=== PATIENT | female | born 1990 | race Caucasian/White ===

== ENCOUNTER 2017-07-23 16:28 | Inpatient (IN) | payer OTHER ==
[2017-07-23 21:00] LABS: AADO2 Arterial 8.1 mmHg (7.0-24.0); Allen Test ACCEPTAB; Arterial Base Excess -2.6 mmol/L (-3.0-3); Arterial Blood Gas Oxygen Sat 97.3 mmHG (95.0-98.0); Arterial COHb 0.3 % (0.0-3.0); Arterial Fraction of Oxyhgb 96.8 % (93.0-99.0); Arterial HCO3 21.5 mmol/L (22.0-26.0); Arterial MetHb 0.2 % (0.0-1.5); Arterial Total Hemglobin 13.5 g/dl (12.0-18.0); MODE ROOM AIR; Site Right Radial
[2017-07-23] MEDS: SOD CHLORIDE 0.9% 1,000 ML IV ×2 (21:06→22:29)
[2017-07-23] MEDS: ONDANSETRON 4 MG INJ IV (21:06)
[2017-07-23 21:07] LABS: ADD MAN DIFF? NO
[2017-07-23 21:09] LABS: BASOPHILS % 0.5 % (0.0-2.0); EOSINOPHILS # 0.2 10^3/ul (0.0-0.5); EOSINOPHILS % 2.1 % (0.0-7.0); LYMPHOCYTES # 3.9 10^3/ul (0.8-2.9); MEAN CORPUSCULAR HEMOGLOBIN 31.2 pg (29.0-33.0); MEAN CORPUSCULAR HGB CONC 36.1 g/dl (32.0-37.0); MEAN CORPUSCULAR VOLUME 86.3 fl (82.0-101.0); MEAN PLATELET VOLUME 11.9 fl (7.4-10.4); MONOCYTE # 0.3 10^3/ul (0.3-0.9); MONOCYTES % 4.2 % (0.0-11.0); NEUTROPHIL # 3.6 10^3/ul (1.6-7.5); NEUTROPHILS % 45.1 % (39.0-77.0); PLATELET COUNT 228 10^3/UL (140-415); RED BLOOD COUNT 4.17 10^6/ul (4.20-5.40); RED CELL DISTRIBUTION WIDTH 11.4 % (11.5-14.5)
[2017-07-23 21:26] LABS: ANION GAP 16 (8-16); BLOOD UREA NITROGEN 15 mg/dl (7-20); CALCIUM 8.8 mg/dl (8.4-10.2); CARBON DIOXIDE 23 mmol/L (21-31); CHLORIDE 100 mmol/L (97-110); CREATININE 0.58 mg/dl (0.44-1.00); LIPASE 55 U/L (23-300); POTASSIUM 4.1 mmol/L (3.5-5.1); SODIUM 135 mmol/L (135-144)
[2017-07-23 21:27] LABS: ACETONE NEGATIVE (NEGATIVE)
[2017-07-23 21:35] LABS: GLUCOSE 500 mg/dl (70-220)
[2017-07-23 21:45] LABS: ADD UMIC YES; UR ASCORBIC ACID NEGATIVE (NEGATIVE); UR BILIRUBIN (Dip) NEGATIVE (NEGATIVE); UR BLOOD (Dip) 1+ mg/dL (NEGATIVE); UR CLARITY SLIGHTLY CLOUDY (CLEAR); UR COLOR STRAW (YELLOW); UR GLUCOSE (Dip) 3+ mg/dL (NEGATIVE); UR KETONES (Dip) NEGATIVE (NEGATIVE); UR LEUKOCYTE ESTERASE (Dip) NEGATIVE Leu/ul (NEGATIVE); UR NITRITE (Dip) NEGATIVE (NEGATIVE); UR RBC 3 /HPF (0-5); UR SPECIFIC GRAVITY (Dip) 1.029 (1.003-1.030); UR SQUAMOUS EPITHELIAL CELL FEW /HPF (FEW); UR TOTAL PROTEIN (Dip) 3+ mg/dl (NEGATIVE); UR UROBILINOGEN (Dip) NEGATIVE (NEGATIVE); UR WBC 3 /HPF (0-5)
[2017-07-23] MEDS: INSULIN REGULAR, HUMAN 100 UNIT/1 ML 3ML VIAL SC (22:07)
[2017-07-23] MEDS ORDERED: BISACODYL (EC) 5 MG TAB PO (22:30)
[2017-07-23] MEDS ORDERED: GLUCOSE GEL 15 GRAM TUBE BUCCAL (22:30)
[2017-07-23] MEDS ORDERED: GLUCAGON 1 MG INJ IM (22:30)
[2017-07-23] MEDS ORDERED: DOCUSATE SODIUM 100 MG CAP PO (22:30)
[2017-07-23] MEDS ORDERED: NACL 0.9% 3 ML SYG IV (22:30)
[2017-07-23] MEDS ORDERED: DEXTROSE 50% 50 ML SYRINGE IV ×2 (22:30)
[2017-07-23] MEDS ORDERED: GLUCOSE GEL 15 GRAM TUBE PO ×2 (22:30)
[2017-07-23] MEDS: INSULIN GLARGINE [LANtus] 3 ML PEN SC (22:52)
[2017-07-24] MEDS: ACETAMINOPHEN 325 MG TAB PO ×2 (00:21→09:31)
[2017-07-24] MEDS: INSULIN ASPART [NOVOLOG] 3 ML PEN SC ×6 (01:21→21:29)
[2017-07-24] MEDS: ACCU-CHEK XX (01:29)
[2017-07-24] MEDS: ONDANSETRON 4 MG INJ IV ×2 (03:59→11:34)
[2017-07-24] MEDS: morphine 2 MG INJ IV ×2 (04:00→11:35)
[2017-07-24] MEDS: SOD CHLORIDE 0.9% 1,000 ML IV (05:30)
[2017-07-24 05:37] LABS: ADD MAN DIFF? NO
[2017-07-24 05:39] LABS: BASOPHILS % 0.5 % (0.0-2.0); EOSINOPHILS # 0.2 10^3/ul (0.0-0.5); HEMATOCRIT 30.3 % (37.0-47.0); HEMOGLOBIN 10.8 g/dl (12.0-16.0); LYMPHOCYTES # 3.4 10^3/ul (0.8-2.9); LYMPHOCYTES % 44.1 % (15.0-51.0); MEAN CORPUSCULAR HEMOGLOBIN 30.9 pg (29.0-33.0); MEAN CORPUSCULAR HGB CONC 35.6 g/dl (32.0-37.0); MEAN CORPUSCULAR VOLUME 86.8 fl (82.0-101.0); MEAN PLATELET VOLUME 12.3 fl (7.4-10.4); MONOCYTE # 0.4 10^3/ul (0.3-0.9); MONOCYTES % 5.3 % (0.0-11.0); NEUTROPHIL # 3.7 10^3/ul (1.6-7.5); PLATELET COUNT 203 10^3/UL (140-415); RED BLOOD COUNT 3.49 10^6/ul (4.20-5.40); RED CELL DISTRIBUTION WIDTH 11.4 % (11.5-14.5)
[2017-07-24 05:39] LABS: WHITE BLOOD COUNT 7.8 10^3/ul (4.8-10.8)
[2017-07-24 05:53] LABS: HEMOGLOBIN A1C 11.9 % (0-5.9)
[2017-07-24 05:56] LABS: ALANINE AMINOTRANSFERASE 22 IU/L (13-69); ALBUMIN 2.7 g/dl (3.3-4.9); ALBUMIN/GLOBULIN RATIO 0.93; ALKALINE PHOSPHATASE 72 IU/L (42-121); ANION GAP 9 (8-16); ASPARTATE AMINO TRANSFERASE 13 IU/L (15-46); BILIRUBIN,INDIRECT 0.2 mg/dl (0-1.1); BILIRUBIN,TOTAL 0.2 mg/dl (0.2-1.3); BLOOD UREA NITROGEN 10 mg/dl (7-20); CALCIUM 8.1 mg/dl (8.4-10.2); CARBON DIOXIDE 27 mmol/L (21-31); CHLORIDE 106 mmol/L (97-110); CHOL/HDL RATIO 4.2 RATIO; CHOLESTEROL 231 mg/dl (100-200); CREATININE 0.62 mg/dl (0.44-1.00); GLUCOSE 169 mg/dl (70-220); HDL CHOLESTEROL 55 mg/dl (33-83); LDL CHOLESTEROL,CALCULATED 112 mg/dl; POTASSIUM 3.3 mmol/L (3.5-5.1); SODIUM 139 mmol/L (135-144); TOTAL PROTEIN 5.6 g/dl (6.1-8.1); TRIGLYCERIDES 321 mg/dl (0-149)
[2017-07-24] MEDS ORDERED: GABAPENTIN 300 MG CAP PO (06:00)
[2017-07-24] MEDS: ALBUTEROL HFA 8 GM INHALER INH (09:00)
[2017-07-24] MEDS: SOD FERRIC GLUC COMPLX 125 MG in SOD CHLORIDE 0.9% 100 ML IVPB (11:34)
[2017-07-24] MEDS: TOPIRAMATE 25 MG TAB PO ×2 (11:34→21:30)
[2017-07-24] MEDS: REPAGLINIDE 1 MG TAB PO ×2 (11:34→17:04)
[2017-07-24] MEDS: metFORMIN 500 MG TAB PO ×2 (11:34→17:03)
[2017-07-24 13:35] LABS: ALANINE AMINOTRANSFERASE 23 IU/L (13-69); ALBUMIN 2.8 g/dl (3.3-4.9); ALBUMIN/GLOBULIN RATIO 0.96; ALKALINE PHOSPHATASE 78 IU/L (42-121); ANION GAP 11 (8-16); ASPARTATE AMINO TRANSFERASE 16 IU/L (15-46); BILIRUBIN,INDIRECT 0.2 mg/dl (0-1.1); BILIRUBIN,TOTAL 0.2 mg/dl (0.2-1.3); BLOOD UREA NITROGEN 14 mg/dl (7-20); CALCIUM 8.5 mg/dl (8.4-10.2); CARBON DIOXIDE 25 mmol/L (21-31); CHLORIDE 104 mmol/L (97-110); CREATININE 0.65 mg/dl (0.44-1.00); GLUCOSE 212 mg/dl (70-220); IRON 239 ug/dl (35-150); POTASSIUM 3.7 mmol/L (3.5-5.1); SODIUM 136 mmol/L (135-144); TOTAL PROTEIN 5.7 g/dl (6.1-8.1)
[2017-07-24 13:44] LABS: % IRON SATURATION 103 % SAT (22-52); TOTAL IRON BINDING CAPACITY 232 ug/dl (241-421)
[2017-07-24 14:11] LABS: FERRITIN 49.4 ng/ml (6.2-137.0)
[2017-07-24 14:23] LABS: HEPATITIS C VIRAL ANTIBODY NEGATIVE (NEGATIVE)
[2017-07-24] MEDS: HYDROCODONE/APAP (5/325) TAB PO (17:04)
[2017-07-24 19:21] LABS: TROPONIN-I < 0.012 ng/ml (0.00-0.12)
[2017-07-25] MEDS: ACCU-CHEK XX (02:00)
[2017-07-25] MEDS: REPAGLINIDE 2 MG TAB PO ×3 (08:35→17:05)
[2017-07-25] MEDS: metFORMIN 500 MG TAB PO ×2 (08:36→17:53)
[2017-07-25] MEDS: TOPIRAMATE 25 MG TAB PO ×2 (08:36→20:53)
[2017-07-25] MEDS: INSULIN ASPART [NOVOLOG] 3 ML PEN SC ×4 (08:39→20:58)
[2017-07-25] MEDS: HYDROCODONE/APAP (5/325) TAB PO (10:09)
[2017-07-25] MEDS: ONDANSETRON 4 MG INJ IV (12:34)
[2017-07-25 13:23] LABS: IRON 61 ug/dl (35-150)
[2017-07-25 13:32] LABS: % IRON SATURATION 24 % SAT (22-52); TOTAL IRON BINDING CAPACITY 258 ug/dl (241-421)
[2017-07-25] MEDS ORDERED: ACET/BUTAL/CAFF TAB PO (17:00)
[2017-07-25] MEDS: SUMATRIPTAN 50 MG TAB PO (19:37)
[2017-07-25] MEDS: GABAPENTIN 300 MG CAP PO (20:53)
[2017-07-25] MEDS: CYCLOBENZAPRINE 10 MG TAB PO (20:53)
[2017-07-26] MEDS: ACCU-CHEK XX (01:44)
[2017-07-26] MEDS: REPAGLINIDE 2 MG TAB PO (07:40)
[2017-07-26] MEDS: INSULIN ASPART [NOVOLOG] 3 ML PEN SC ×2 (07:45→11:45)
[2017-07-26 08:54] LABS: ADD MAN DIFF? NO
[2017-07-26 09:00] LABS: WHITE BLOOD COUNT 8.2 10^3/ul (4.8-10.8)
[2017-07-26 09:00] LABS: BASOPHIL # 0.1 10^3/ul (0.0-0.1); BASOPHILS % 0.6 % (0.0-2.0); EOSINOPHILS # 0.2 10^3/ul (0.0-0.5); EOSINOPHILS % 2.9 % (0.0-7.0); HEMATOCRIT 37.3 % (37.0-47.0); HEMOGLOBIN 13.6 g/dl (12.0-16.0); LYMPHOCYTES # 2.9 10^3/ul (0.8-2.9); LYMPHOCYTES % 35.7 % (15.0-51.0); MEAN CORPUSCULAR HEMOGLOBIN 32.1 pg (29.0-33.0); MEAN CORPUSCULAR HGB CONC 36.5 g/dl (32.0-37.0); MEAN PLATELET VOLUME 11.8 fl (7.4-10.4); MONOCYTE # 0.4 10^3/ul (0.3-0.9); MONOCYTES % 5.1 % (0.0-11.0); NEUTROPHIL # 4.6 10^3/ul (1.6-7.5); NEUTROPHILS % 55.5 % (39.0-77.0); PLATELET COUNT 259 10^3/UL (140-415); RED BLOOD COUNT 4.24 10^6/ul (4.20-5.40); RED CELL DISTRIBUTION WIDTH 11.6 % (11.5-14.5)
[2017-07-26] MEDS: metFORMIN 500 MG TAB PO (09:10)
[2017-07-26] MEDS: GABAPENTIN 300 MG CAP PO ×2 (09:11→12:22)
[2017-07-26] MEDS: TOPIRAMATE 25 MG TAB PO (09:11)
[2017-07-26] MEDS: CYCLOBENZAPRINE 10 MG TAB PO ×2 (09:11→12:22)
[2017-07-26 09:17] LABS: ANION GAP 16 (8-16); BLOOD UREA NITROGEN 16 mg/dl (7-20); CALCIUM 9.9 mg/dl (8.4-10.2); CARBON DIOXIDE 24 mmol/L (21-31); CHLORIDE 104 mmol/L (97-110); CREATININE 0.71 mg/dl (0.44-1.00); GLUCOSE 216 mg/dl (70-220); MAGNESIUM 1.7 mg/dl (1.7-2.5); PHOSPHORUS 5.4 mg/dl (2.5-4.9); POTASSIUM 4.6 mmol/L (3.5-5.1); SODIUM 139 mmol/L (135-144)
[2017-07-26] MEDS: glipiZIDE 5 MG TAB PO (11:44)
[2017-07-26] MEDS: LINAGLIPTIN 5 MG TABLET PO (11:45)
[2017-07-26 15:52] LABS: C-PEPTIDE 1.87 ng/mL (0.80-3.85)
[2017-07-27 16:01] LABS: CREATININE, RANDOM URINE 20 mg/dL (20-320); MICROALBUMIN 46.5 mg/dL; MICROALBUMIN/CREATININE RATIO 2325 (<30)
== END 2017-07-26 16:25 | disposition home or self-care (01) | DRG 74 ==
LOC: MS3 22:12 → E/R 16:28
PROVIDERS: Family Medicine
DX: E11.40 Type 2 diabetes mellitus with diabetic neuropathy, unspecified (principal); E11.65 Type 2 diabetes mellitus with hyperglycemia; E86.0 Dehydration; R10.9 Unspecified abdominal pain; G43.109 Migraine with aura, not intractable, without status migrainosus; E78.2 Mixed hyperlipidemia; R11.0 Nausea; Z79.4 Long term (current) use of insulin; Z91.14 Patient's other noncompliance with medication regimen
CPT/HCPCS: 36415; 36600; 80048; 80053; 80061; 81001; 81025; 82010; 82043; 82728; 82803; 82962; 83036; 83540; 83690; 83735; 84100; 84443; 84484; 84681; 85025; 86803; 93005; 96372; 96374; 99285-25

== ENCOUNTER 2018-02-08 21:30 | Emergency (ER) | payer OTHER ==
[2018-02-08 23:04] LABS: ADD MAN DIFF? NO
[2018-02-08 23:07] LABS: BASOPHILS % 0.3 % (0.0-2.0); EOSINOPHILS # 0.1 10^3/ul (0.0-0.5); HEMOGLOBIN 13.3 g/dl (12.0-16.0); LYMPHOCYTES # 2.6 10^3/ul (0.8-2.9); LYMPHOCYTES % 29.5 % (15.0-51.0); MEAN CORPUSCULAR HEMOGLOBIN 31.1 pg (29.0-33.0); MEAN CORPUSCULAR HGB CONC 35.9 g/dl (32.0-37.0); MEAN CORPUSCULAR VOLUME 86.4 fl (82.0-101.0); MEAN PLATELET VOLUME 12.4 fl (7.4-10.4); MONOCYTE # 0.3 10^3/ul (0.3-0.9); MONOCYTES % 3.4 % (0.0-11.0); NEUTROPHIL # 5.8 10^3/ul (1.6-7.5); NEUTROPHILS % 65.6 % (39.0-77.0); PLATELET COUNT 218 10^3/UL (140-415); RED BLOOD COUNT 4.28 10^6/ul (4.20-5.40); RED CELL DISTRIBUTION WIDTH 11.5 % (11.5-14.5)
[2018-02-08 23:07] LABS: WHITE BLOOD COUNT 8.9 10^3/ul (4.8-10.8)
[2018-02-08] MEDS: SOD CHLORIDE 0.9% 1,000 ML IV (23:07)
[2018-02-08 23:10] LABS: MODE ROOM AIR; MetHgb Venous 1.1 %; Sample Type Blood venous; Site VENOUS LINE; Venous COHb 0.1 %; Venous Fraction OxyHgb 22.9 %; Venous Oxygen Sat 23.2 mmHG (55.0-75.0); Venous Total Hemglobin 13.5 g/dl
[2018-02-08] MEDS: ONDANSETRON 4 MG INJ IV (23:11)
[2018-02-08 23:30] LABS: ADD UMIC YES; UR ASCORBIC ACID NEGATIVE (NEGATIVE); UR BILIRUBIN (Dip) NEGATIVE (NEGATIVE); UR BLOOD (Dip) 1+ mg/dL (NEGATIVE); UR CLARITY CLEAR (CLEAR); UR COLOR COLORLESS (YELLOW); UR GLUCOSE (Dip) 3+ mg/dL (NEGATIVE); UR KETONES (Dip) NEGATIVE (NEGATIVE); UR LEUKOCYTE ESTERASE (Dip) NEGATIVE Leu/ul (NEGATIVE); UR NITRITE (Dip) NEGATIVE (NEGATIVE); UR RBC 3 /HPF (0-5); UR SPECIFIC GRAVITY (Dip) 1.024 (1.003-1.030); UR TOTAL PROTEIN (Dip) 2+ mg/dl (NEGATIVE); UR UROBILINOGEN (Dip) NEGATIVE (NEGATIVE); UR WBC 1 /HPF (0-5)
[2018-02-08 23:32] LABS: ANION GAP 14 (8-16); BLOOD UREA NITROGEN 12 mg/dl (7-20); CALCIUM 9.6 mg/dl (8.4-10.2); CARBON DIOXIDE 25 mmol/L (21-31); CHLORIDE 97 mmol/L (97-110); CREATININE 0.72 mg/dl (0.44-1.00); MAGNESIUM 1.8 mg/dl (1.7-2.5); PHOSPHORUS 4.5 mg/dl (2.5-4.9); POTASSIUM 3.7 mmol/L (3.5-5.1); SODIUM 132 mmol/L (135-144)
[2018-02-09] MEDS: SOD CHLORIDE 0.9% 600 ML IV (00:08)
[2018-02-09 00:16] LABS: GLUCOSE 614 mg/dl (70-220)
[2018-02-09] MEDS: INSULIN LISPRO 100 UNIT/ML VIAL SC (00:37)
== END 2018-02-09 01:30 | disposition home or self-care (01) ==
LOC: E/R 02-09 01:30
DX: E11.65 Type 2 diabetes mellitus with hyperglycemia (principal); Z79.84 Long term (current) use of oral hypoglycemic drugs
CPT/HCPCS: 36415; 80048; 81001; 82803; 82962; 83735; 84100; 85025; 96361; 96372; 96374; 99284-25

== ENCOUNTER 2018-03-10 09:02 | Emergency (ER) | payer OTHER ==
[2018-03-10 09:44] LABS: ADD MAN DIFF? NO
[2018-03-10 09:46] LABS: WHITE BLOOD COUNT 7.9 10^3/ul (4.8-10.8)
[2018-03-10 09:46] LABS: BASOPHILS % 0.5 % (0.0-2.0); EOSINOPHILS # 0.1 10^3/ul (0.0-0.5); EOSINOPHILS % 1.6 % (0.0-7.0); HEMATOCRIT 35.8 % (37.0-47.0); HEMOGLOBIN 12.7 g/dl (12.0-16.0); LYMPHOCYTES # 2.4 10^3/ul (0.8-2.9); MEAN CORPUSCULAR HEMOGLOBIN 31.3 pg (29.0-33.0); MEAN CORPUSCULAR HGB CONC 35.5 g/dl (32.0-37.0); MEAN CORPUSCULAR VOLUME 88.2 fl (82.0-101.0); MEAN PLATELET VOLUME 11.7 fl (7.4-10.4); MONOCYTE # 0.3 10^3/ul (0.3-0.9); MONOCYTES % 3.7 % (0.0-11.0); NEUTROPHILS % 63.9 % (39.0-77.0); PLATELET COUNT 231 10^3/UL (140-415); RED BLOOD COUNT 4.06 10^6/ul (4.20-5.40); RED CELL DISTRIBUTION WIDTH 11.3 % (11.5-14.5)
[2018-03-10] MEDS: SOD CHLORIDE 0.9% 580 ML IV (09:47)
[2018-03-10 09:50] LABS: ADD UMIC YES; UR ASCORBIC ACID NEGATIVE (NEGATIVE); UR BILIRUBIN (Dip) NEGATIVE (NEGATIVE); UR BLOOD (Dip) 2+ mg/dL (NEGATIVE); UR CLARITY CLEAR (CLEAR); UR COLOR YELLOW (YELLOW); UR GLUCOSE (Dip) 3+ mg/dL (NEGATIVE); UR KETONES (Dip) NEGATIVE (NEGATIVE); UR LEUKOCYTE ESTERASE (Dip) NEGATIVE Leu/ul (NEGATIVE); UR NITRITE (Dip) NEGATIVE (NEGATIVE); UR RBC 4 /HPF (0-5); UR SQUAMOUS EPITHELIAL CELL FEW /HPF (FEW); UR TOTAL PROTEIN (Dip) 3+ mg/dl (NEGATIVE); UR UROBILINOGEN (Dip) NEGATIVE (NEGATIVE); UR WBC 4 /HPF (0-5)
[2018-03-10 10:02] LABS: ANION GAP 10 (5-13); BLOOD UREA NITROGEN 11 mg/dl (7-20); CALCIUM 8.7 mg/dl (8.4-10.2); CARBON DIOXIDE 25 mmol/L (21-31); CHLORIDE 100 mmol/L (97-110); CREATININE 0.59 mg/dl (0.44-1.00); Estimated GFR > 60 mL/min (>60); MAGNESIUM 1.8 mg/dl (1.7-2.5); PHOSPHORUS 4.2 mg/dl (2.5-4.9); POTASSIUM 3.8 mmol/L (3.5-5.1); SODIUM 135 mmol/L (135-144)
[2018-03-10 10:09] LABS: MODE ROOM AIR; MetHgb Venous 0.3 %; Sample Type Blood venous; Site VENOUS LINE; Venous COHb 0.3 %; Venous Oxygen Sat 45.3 mmHG (55.0-75.0); Venous Total Hemglobin 12.7 g/dl
[2018-03-10 10:18] LABS: GLUCOSE 477 mg/dl (70-220)
[2018-03-10] MEDS: INSULIN REGULAR, HUMAN 100 UNIT/1 ML 3ML VIAL SC (10:53)
[2018-03-10] MEDS: SOD CHLORIDE 0.9% 1,000 ML IV (10:54)
[2018-03-10] MEDS: KETOROLAC 15 MG INJ IV (10:54)
[2018-03-10] MEDS: LORAZEPAM 1 MG TAB PO (12:47)
== END 2018-03-10 13:01 | disposition home or self-care (01) ==
LOC: E/R 09:02
DX: E11.65 Type 2 diabetes mellitus with hyperglycemia (principal); E11.42 Type 2 diabetes mellitus with diabetic polyneuropathy; M54.5 Low back pain; E11.21 Type 2 diabetes mellitus with diabetic nephropathy; F41.9 Anxiety disorder, unspecified; R00.0 Tachycardia, unspecified; Z79.84 Long term (current) use of oral hypoglycemic drugs
CPT/HCPCS: 36415; 80048; 81001; 82803; 82962; 83735; 84100; 84702; 85025; 96361; 96374; 99284-25